=== PATIENT | female | born 1985 | race Two or more races ===

== ENCOUNTER 2023-10-12 07:04 | Emergency (ER) | payer OTHER ==
[~2023-10-12] VITALS: Ht 175.3 cm; Wt 72.7 kg
[2023-10-12 07:23] VITALS: TEMP 98.1
[2023-10-12 08:44] LABS: COVID AG,FIA SOURCE NASAL SWAB
[2023-10-12 09:13] LABS: SARS-COV2 (COVID) ANTIGEN,FIA Negative (Negative)
[2023-10-12 09:33] LABS: INFLUENZA TYPE A NEGATIVE FOR TYPE A (NEGATIVE); INFLUENZA TYPE B NEGATIVE FOR TYPE B (NEGATIVE)
[2023-10-12] MEDS: PROMETHAZINE HCL/PHENYLEPHRINE/CODEINE 5 ML ORAL.SYG PO ONE (10:11)
[2023-10-12 10:40] VITALS: BP 114/78; PULSE 69; RESP 16
== END 2023-10-12 11:47 | disposition home or self-care (01) ==
LOC: EMS 07:06
DX: J06.9 Acute upper respiratory infection, unspecified (principal); Z90.49 Acquired absence of other specified parts of digestive tract; Z20.822 Contact with and (suspected) exposure to COVID-19
CPT/HCPCS: 99283; 87426; 87804; J3490